=== PATIENT | male | born 1935 | race Two or more races ===

== ENCOUNTER 2016-10-24 19:27 | Emergency (ER) | payer MEDICARE, OTHER, BC ==
[~2016-10-24] VITALS: Ht 177.8 cm; Wt 77.7 kg
[~2016-10-24 19:27] MED LIST: /TAMS4CA; ACET65TA; ALLERGY MEDICATION PO; ASPI81TA PO; ASPI81TA83; BABY81CH; BACT800T; CEFD1CAP8 PO; CIPR-249 PO; FINA5TAB2 PO; GLUC1000; GLUC500T; LEVA750T7 PO; METF850T4 PO; PROS5TAB; TAMS0.4C2 PO; THERGRAN; VITA10005 PO; VITA100C7; VITA500T; VITAMIN C; VITMTA PO
[2016-10-24] MEDS ORDERED: MONT10TA2 (19:47)
[2016-10-24 20:26] LABS: BASO % 0.2 % (0.0-1.0); EOS # 0.2 K/mm3 (0.0-0.50); EOS % 1.4 % (0.0-3.0); LARGE UNSTAINED CELL # 0.2 K/mm3 (0.0-0.4); LARGE UNSTAINED CELL % 1.6 % (0.0-4.0); LYMPH # 1.2 K/mm3 (1.5-4.5); LYMPH % 8.4 % (24.0-44.0); MEAN CORPUSCULAR HEMOGLOBIN 33.3 pg (27.0-33.0); MEAN CORPUSCULAR HGB CONC 35.3 g/dl (32.0-36.5); MEAN CORPUSCULAR VOLUME 94.3 fl (80.0-96.0); MONO # 0.7 K/mm3 (0.0-0.8); MONO % 4.9 % (0.0-5.0); NEUTROPHILS # 11.9 K/mm3 (1.8-7.7); NEUTROPHILS % 83.6 % (36.0-66.0); PLATELET COUNT, AUTOMATED 389 k/mm3 (150-450); RED CELL DISTRIBUTION WIDTH 12.8 % (11.5-14.5); WHITE BLOOD COUNT 14.3 K/mm3 (4.0-10.0)
[2016-10-24 20:51] LABS: ANION GAP 8 MEQ/L (8-16); BLOOD UREA NITROGEN 21 MG/DL (7-18); CALCIUM LEVEL 8.9 MG/DL (8.8-10.2); CARBON DIOXIDE LEVEL 28 MEQ/L (21-32); CHLORIDE LEVEL 99 MEQ/L (98-107); CREATININE FOR GFR 1.17 MG/DL (0.70-1.30); FREE T4 0.92 NG/DL (0.76-1.46); GLOMERULAR FILTRATION RATE > 60.0 (>42); GLUCOSE, FASTING 204 MG/DL (83-110); MAGNESIUM LEVEL 2.1 MG/DL (1.8-2.4); POTASSIUM SERUM 4.4 MEQ/L (3.5-5.1); SODIUM LEVEL 135 MEQ/L (136-145)
[2016-10-24 22:08] VITALS: BP 136/78
--- NOTE | 2016-10-25 07:51 | REP ---
Clinical: Syncope. Technique: PA and lateral. Comparison: 09/08/2015. Findings: Mediastinum and cardiac silhouette are stable. Stable prominent appearance to the right hilum is again noted. Lung campos demonstrate chronic stable changes without acute consolidation, effusion, or pneumothorax. Skeletal structures demonstrate age-related changes. Impression: Stable prominent appearance of the right hilum likely secondary to underlying vascular prominence. Chronic changes without acute cardiopulmonary process. Signed by Thai Maldonado MD 10/25/2016 07:42 A
--- NOTE | 2016-10-25 19:26 | ECGEPIP ---
Stationary ECG Study [facility] - ED Test Date: 2016-10-24 Pat Name: RADHA YANES Department: Room: - Gender: M Seed [employer]cker: ToB: 1935 Requested By: KASANDRA Shanks Order Number: [id number] Reading MD: Justice Loya Measurements Intervals [place] Rate: 97 P: 34 PA: 237 QRS: 51 QRSD: 135 T: 21 QT: 353 QTc: 449 Interpretive Statements SINUS RHYTHM WITH FIRST DEGREE AV BLOCK INDETERMINATE AXIS RIGHT BUNDLE BRANCH BLOCK SIMILAR TO 09/09/15 Electronically Signed On 10-25-2016 19:25:33 EDT by Justice Loya
== END 2016-10-24 22:25 | disposition home or self-care (01) ==
LOC: M ED 19:27
DX: R55 Syncope and collapse (principal); I45.10 Unspecified right bundle-branch block; I44.0 Atrioventricular block, first degree; E11.9 Type 2 diabetes mellitus without complications; N40.0 Benign prostatic hyperplasia without lower urinary tract symptoms; Z79.899 Other long term (current) drug therapy; Z79.82 Long term (current) use of aspirin; Z79.84 Long term (current) use of oral hypoglycemic drugs

== ENCOUNTER → 2018-02-20 | Outpatient (CLI) | payer MEDICARE, BC, OTHER ==
[~2018-02-20] MED LIST changes: +ASPI81CH40 PO; -ASPI81TA PO; +FLOM0.4C39 PO; +MONT10TA2; +MUCI600T31 PO
[2018-02-20 18:42] LABS: AMORPHOUS SEDIMENT SMALL (NEGATIVE); APPEARANCE, URINE CLOUDY (CLEAR); BACTERIA, URINE AUTO NEGATIVE (NEGATIVE); BILIRUBIN, URINE AUTO NEGATIVE (NEGATIVE); BLOOD, URINE BLOOD 1+ (NEGATIVE); COLOR, URINE YELLOW (YELLOW); GLUCOSE, URINE (UA) AUTO NEGATIVE (NEGATIVE); KETONE, URINE AUTO NEGATIVE (NEGATIVE); LEUKOCYTE ESTERASE, URINE AUTO 3+ (NEGATIVE); NITRITE, URINE AUTO POSITIVE (NEGATIVE); PROTEIN, URINE AUTO 1+ mg/dL (NEGATIVE); RBC, URINE AUTO 26 /HPF (0-3); SQUAMOUS EPITHELIAL CELL UR AU 1 /HPF (0-6); UROBILINOGEN, URINE AUTO 0.2 mg/dL (0.0-2.0); WBC, URINE AUTO TNTC /HPF (0-3)
[2018-02-20 19:10] LABS: BLOOD UREA NITROGEN 24 MG/DL (7-18); CALCIUM LEVEL 9.3 MG/DL (8.8-10.2); CARBON DIOXIDE LEVEL 29 MEQ/L (21-32); CHLORIDE LEVEL 102 MEQ/L (98-107); CREATININE FOR GFR 0.97 MG/DL (0.70-1.30); GLOMERULAR FILTRATION RATE > 60.0 (>35); GLUCOSE, FASTING 133 MG/DL (70-100); POTASSIUM SERUM 4.9 MEQ/L (3.5-5.1); SODIUM LEVEL 139 MEQ/L (136-145)
== END ==
LOC: M SMT 15:22
PROVIDERS: ATTEND Nurse Practitioner Family
DX: N40.1 Benign prostatic hyperplasia with lower urinary tract symptoms (principal); R31.0 Gross hematuria
CPT/HCPCS: 36415; 51798; 80048; 81001; 87086; 88108; G0463

== ENCOUNTER → 2018-02-21 | Outpatient (REF) | payer MEDICARE, OTHER ==
[~2018-02-21] MED LIST changes: -FLOM0.4C39 PO; -MUCI600T31 PO
[2018-02-21 22:02] LABS: AMORPHOUS SEDIMENT SMALL (NEGATIVE); APPEARANCE, URINE CLOUDY (CLEAR); BACTERIA, URINE AUTO NEGATIVE (NEGATIVE); BILIRUBIN, URINE AUTO NEGATIVE (NEGATIVE); BLOOD, URINE BLOOD 1+ (NEGATIVE); COLOR, URINE YELLOW (YELLOW); GLUCOSE, URINE (UA) AUTO NEGATIVE (NEGATIVE); KETONE, URINE AUTO NEGATIVE (NEGATIVE); LEUKOCYTE ESTERASE, URINE AUTO 3+ (NEGATIVE); MUCUS, URINE SMALL (NEGATIVE); NITRITE, URINE AUTO POSITIVE (NEGATIVE); PROTEIN, URINE AUTO 1+ mg/dL (NEGATIVE); RBC, URINE AUTO 40 /HPF (0-3); SPECIFIC GRAVITY URINE AUTO 1.021 (1.002-1.035); SQUAMOUS EPITHELIAL CELL UR AU 0 /HPF (0-6); TRANSITIONAL EPITHELIAL AUTO 1 /HPF; UROBILINOGEN, URINE AUTO 0.2 mg/dL (0.0-2.0); WBC, URINE AUTO TNTC /HPF (0-3)
== END ==
LOC: M SMT 17:09
PROVIDERS: ATTEND Nurse Practitioner Family
DX: R31.0 Gross hematuria (principal)

== ENCOUNTER → 2018-02-24 | Outpatient (CLI) | payer MEDICARE, OTHER, BC ==
[~2018-02-24] MED LIST changes: +ISOVUE-370 76% 100ML VIAL (Q9967) As Ordered ONE
--- NOTE | 2018-02-24 10:06 | REP ---
CT UROGRAPHY WITHOUT AND WITH IV CONTRAST: Multiphase postcontrast imaging included. HISTORY: Gross hematuria. COMPARISON CT STUDY: June 04, 2015. CT CONTRAST DOSE: 100 mL of intravenous Isovue [address] FINDINGS: Preliminary scene painter radiograph is unremarkable. Bowel gas pattern is normal. The lung bases show minimal bibasilar fibrotic change. The liver and the spleen are normal in size homogeneous in texture. The gallbladder is unremarkable. No adrenal lesion is seen on either side. The pancreas shows no evidence of mass or cyst. A normal caliber aorta is seen. There is no evidence of hydronephrosis on either side. No intrarenal calculus is seen. There is a cyst in the upper pole of the left kidney which measures 2.7 cm in greatest diameter. A parenchymal cyst is seen at the lower pole of the left kidney as well measuring 1.2 cm. Kidneys enhance symmetrically. No mass lesion is observed. Delayed scan images show no filling defect in the collecting system and normal-caliber ureters. The prostate is enlarged. In addition, a small enhancing mass lesion is suspected in the bladder base on the left posteriorly measuring 1.1 cm in greatest diameter. This presents as a filling defect on delayed postcontrast acquisition although it is contiguous with the floor of the bladder which is elevated by the prostate. It could be nodular prostate enlargement impinging on the bladder. Indeed the appearance is actually quite similar to the CT study done 2 years ago June 04, 2015. Although at that time, there was a large thrombus in the dilated urinary bladder. There is a diffuse thickening of the remainder the urinary bladder wall. There are two lymph nodes to the left of midline in the prevesical soft tissues just posterior to the distal rectus muscle. The largest of these measures 12 x 9 mm. The smaller measures 9 mm in greatest diameter. They are both visible and unchanged from the June 04, 2015 study. Prostate is enlarged as before. No abdominal wall defect is seen. No other evidence of adenopathy is observed. No bony destructive lesion is appreciated. IMPRESSION: Two small left renal cysts. No hydronephrosis or urinary tract calculus seen. Diffuse thickening of the bladder wall. Prostate enlargement. Suspect enhancing 11 mm left posterior bladder wall mass. There are two stable lymph nodes along the anterior edge of the urinary bladder on the left side, unchanged from 2016 prior study. Electronically Signed by Mauricio Nassar MD 02/24/2018 10:28 A
== END ==
LOC: M RAD 08:08
PROVIDERS: ATTEND Nurse Practitioner Family
DX: R31.0 Gross hematuria (principal)
CPT/HCPCS: 74178; Q9967

== ENCOUNTER → 2018-03-13 | Outpatient (REF) | payer MEDICARE, OTHER, BC ==
[~2018-03-13] MED LIST changes: +FLOM0.4C39 PO; -ISOVUE-370 76% 100ML VIAL (Q9967) As Ordered ONE; +MUCI600T31 PO
[2018-03-13 19:30] LABS: APPEARANCE, URINE HAZY (CLEAR); BACTERIA, URINE AUTO 1+ (NEGATIVE); BILIRUBIN, URINE AUTO NEGATIVE (NEGATIVE); BLOOD, URINE BLOOD 1+ (NEGATIVE); CALCIUM OXALATE CRYSTALS MODERATE; COLOR, URINE YELLOW (YELLOW); GLUCOSE, URINE (UA) AUTO NEGATIVE (NEGATIVE); KETONE, URINE AUTO NEGATIVE (NEGATIVE); LEUKOCYTE ESTERASE, URINE AUTO 2+ (NEGATIVE); MUCUS, URINE SMALL (NEGATIVE); NITRITE, URINE AUTO NEGATIVE (NEGATIVE); PROTEIN, URINE AUTO NEGATIVE (NEGATIVE); RBC, URINE AUTO 13 /HPF (0-3); SPECIFIC GRAVITY URINE AUTO 1.021 (1.002-1.035); SQUAMOUS EPITHELIAL CELL UR AU 0 /HPF (0-6); UROBILINOGEN, URINE AUTO 0.2 mg/dL (0.0-2.0); WBC, URINE AUTO 58 /HPF (0-3)
== END ==
LOC: M SMT 17:55
PROVIDERS: ATTEND Nurse Practitioner Family
DX: N39.0 Urinary tract infection, site not specified (principal)
CPT/HCPCS: 81001; 87088; 87186; G0463

== ENCOUNTER → 2018-03-27 | Outpatient (REF) | payer MEDICARE, OTHER, BC ==
[2018-03-27 13:26] LABS: APPEARANCE, URINE HAZY (CLEAR); BACTERIA, URINE AUTO NEGATIVE (NEGATIVE); BILIRUBIN, URINE AUTO NEGATIVE (NEGATIVE); BLOOD, URINE BLOOD NEGATIVE (NEGATIVE); CALCIUM OXALATE CRYSTALS SMALL; COLOR, URINE YELLOW (YELLOW); GLUCOSE, URINE (UA) AUTO NEGATIVE (NEGATIVE); KETONE, URINE AUTO NEGATIVE (NEGATIVE); LEUKOCYTE ESTERASE, URINE AUTO NEGATIVE (NEGATIVE); NITRITE, URINE AUTO NEGATIVE (NEGATIVE); PROTEIN, URINE AUTO NEGATIVE (NEGATIVE); RBC, URINE AUTO 2 /HPF (0-3); SPECIFIC GRAVITY URINE AUTO 1.024 (1.002-1.035); SQUAMOUS EPITHELIAL CELL UR AU 1 /HPF (0-6); UROBILINOGEN, URINE AUTO 0.2 mg/dL (0.0-2.0); WBC, URINE AUTO 8 /HPF (0-3)
== END ==
LOC: M LAB REF 13:08
PROVIDERS: ATTEND Nurse Practitioner Family
DX: N39.0 Urinary tract infection, site not specified (principal)

== ENCOUNTER → 2018-03-28 | Outpatient (CLI) | payer MEDICARE, OTHER, BC ==
--- NOTE | 2018-03-28 10:26 | ECGEPIP ---
Stationary ECG Study [facility] Test Date: 2018-03-28 Pat Name: RADHA YANES Department: Room: - Gender: M Under B[employer]: : 1935 Requested By: RAISSA Godoy Order Number: [id number] Reading MD: Anita Castro Measurements Intervals [place] Rate: 74 P: 60 RI: 236 QRS: 96 QRSD: 134 T: 59 QT: 384 QTc: 427 Interpretive Statements SINUS RHYTHM WITH FIRST DEGREE AV BLOCK RIGHT BUNDLE BRANCH BLOCK BIFASICULAR BLOCK LOW VOLTAGE LIMB VERTICAL AXIS C/W 10/24/16 Electronically Signed On 03-28-2018 10:26:31 EST by Anita Castro
== END ==
LOC: M LAB 10:00 → M EKG 10:00
PROVIDERS: ATTEND Internal Medicine
DX: N39.0 Urinary tract infection, site not specified (principal); E11.9 Type 2 diabetes mellitus without complications

== ENCOUNTER → 2018-03-28 | Outpatient (CLI) | payer MEDICARE, OTHER, BC ==
--- NOTE | 2018-03-28 15:56 | REP ---
Chest two views HISTORY: Preop Comparison: 10/24/2016 There is elevation of the right hemidiaphragm. A minimal increase in interstitial markings is present in the lungs consistent with chronic interstitial change. The heart is normal in size. The pulmonary vasculature is normal in appearance. The bony structure is intact. IMPRESSION: Chronic interstitial change. Electronically Signed by Julian Lepe MD 03/28/2018 03:48 P
[2018-03-28 18:49] LABS: HEMATOCRIT 47.6 % (42.0-52.0); HEMOGLOBIN 15.9 g/dl (13.5-17.5); MEAN CORPUSCULAR HEMOGLOBIN 32.7 pg (27.0-33.0); MEAN CORPUSCULAR HGB CONC 33.4 g/dl (32.0-36.5); MEAN CORPUSCULAR VOLUME 97.9 fl (80.0-96.0); PLATELET COUNT, AUTOMATED 365 10^3/uL (150-450); RED BLOOD COUNT 4.86 10^6/uL (4.30-6.10)
[2018-03-28 18:59] LABS: INR 0.95; PROTHROMBIN TIME 12.8 SECONDS (12.1-14.4)
[2018-03-28 19:00] LABS: PARTIAL THROMBOPLASTIN TIME 34.7 SECONDS (25.4-37.6)
[2018-03-28 19:16] LABS: BLOOD UREA NITROGEN 20 MG/DL (7-18); CALCIUM LEVEL 8.9 MG/DL (8.8-10.2); CARBON DIOXIDE LEVEL 30 MEQ/L (21-32); CHLORIDE LEVEL 100 MEQ/L (98-107); CREATININE FOR GFR 0.93 MG/DL (0.70-1.30); GLOMERULAR FILTRATION RATE > 60.0 (>35); GLUCOSE, FASTING 208 MG/DL (70-100); POTASSIUM SERUM 4.9 MEQ/L (3.5-5.1); SODIUM LEVEL 139 MEQ/L (136-145)
== END ==
LOC: M SMT 15:06
PROVIDERS: ATTEND Nurse Practitioner Family
DX: Z01.818 Encounter for other preprocedural examination (principal); R33.8 Other retention of urine; N32.89 Other specified disorders of bladder; N39.0 Urinary tract infection, site not specified; E11.9 Type 2 diabetes mellitus without complications

== ENCOUNTER 2018-04-07 10:16 | Day surgery (SDC) | payer MEDICARE, OTHER, BC ==
[~2018-04-07] VITALS: Ht 177.8 cm; Wt 78.9 kg
[2018-04-07] MEDS ORDERED: LR 1,000 ML IV ONE (10:30)
[2018-04-07] MEDS ORDERED: LIDOCAINE 2% INJ 100 MG/5 ML SDV (FOR ANES.) As Ordered ONE (10:57)
[2018-04-07] MEDS ORDERED: PROPOFOL 200 MG/20 ML VIAL As Ordered ONE (10:57)
[2018-04-07] MEDS ORDERED: fentaNYL 100 MCG/2 ML INJECTION (J3010) As Ordered ONE ×2 (10:57→14:01)
[2018-04-07] MEDS ORDERED: ONDANSETRON 4MG/2ML VIAL (J2405) As Ordered ONE (10:57)
[2018-04-07] MEDS ORDERED: ROCURONIUM BROMIDE 50 MG/5 ML VIAL As Ordered ONE (12:46)
[2018-04-07] MEDS ORDERED: GLYCOPYRROLATE INJ 0.2 MG/ML 2 ML VIAL As Ordered ONE (13:38)
[2018-04-07] MEDS ORDERED: dexameTHASONE 4 MG/ML 1ML VIAL (J1100) As Ordered ONE (13:38)
[2018-04-07] MEDS ORDERED: FUROSEMIDE 100 MG/10 ML VIAL (J1940) As Ordered ONE (13:52)
[2018-04-07] MEDS ORDERED: ONDANSETRON 4MG/2ML VIAL (J2405) IV PRN (15:15)
[2018-04-07] MEDS ORDERED: LR 1,000 ML IV SCH (15:15)
[2018-04-07] MEDS ORDERED: fentaNYL 100 MCG/2 ML INJECTION (J3010) IV PRN (15:15)
[2018-04-07] MEDS ORDERED: PERCOCET 5MG/325MG TAB PO PRN (15:15)
[2018-04-07] MEDS ORDERED: ACETAMINOPHEN TAB 650MG DOSE (2X325MG) PO PRN (15:15)
[2018-04-07 15:37] VITALS: BP 144/68
--- NOTE | 2018-04-08 08:31 | RO ---
DATE OF PROCEDURE: 04/07/2018 PREPROCEDURE DIAGNOSIS: Urinary retention, Possible bladder mass. POSTPROCEDURE DIAGNOSIS: Benign prostatic hyperplasia. PROCEDURE: Cystoscopy, Button transurethral electrovaporization of the prostate. SURGEON: Jessee Catherine MD VARNISHER: None. ANESTHESIA: General. OPERATIVE INDICATIONS: This is an 82-year-old male who underwent cystoscopy with Button transurethral electrovaporization prostate approximately three years ago. Recently he has had difficulty with urinary retention and also on recent imaging he was found to have a possible mass inside his bladder. He was brought to the operating room today to investigate the cause of his urinary retention and treat that as well as a possible bladder mass. DESCRIPTION OF PROCEDURE: The patient was brought to the operating room and general anesthesia was induced. Prophylactic antibiotics were infused. He was then placed in the dorsal lithotomy position and prepped and draped in the usual sterile fashion. At this point, a rigid cystoscope was inserted into the urethral meatus and advanced into the bladder. At this point, the bladder was thoroughly examined with both the 30 and the 70 degrees lens. Of note there were no bladder masses. The patient did have a fairly large median lobe of his prostate growing into the bladder which I suspect was the bladder mass seen on imaging. On examination, he did not have a bladder neck contracture. Instead he had a large amount of regrowth of prostatic urethral tissue. For this reason I decided to do another Button transurethral electrovaporization to open up his prostate so that he could empty his bladder better. At this point the cystoscope was changed out for a Button resectoscope. I began vaporizing hyperplastic tissue first at the median lobe and then circumferentially at the bladder neck. I then vaporized hyperplastic tissue on both lateral lobes. I kept doing this until there was a clear channel established. Throughout the procedure I made sure not to vaporize close to the ureteral orifices or distal to the verumontanum. Once satisfied with the clear channel, hemostasis was obtained using coagulation current. Once that was done, the Button resectoscope was removed and an #18-[place] catheter was inserted into the bladder. The balloon was filled with 15 mL of sterile water and fluid drained light pink at the end of the procedure. The catheter was connected to gravity drainage and this marked the conclusion of the procedure. The patient was then taken out of dorsal lithotomy position, awakened from anesthesia and transported to the recovery room in stable condition. ESTIMATED BLOOD LOSS: 25 mL COMPLICATIONS: None SPECIMENS: None PLAN: The patient will followup in clinic in approximately one week for catheter removal and voiding trial. MELISA
== END 2018-04-07 16:28 | disposition home or self-care (01) ==
LOC: M SDC 10:16 → EEVIPCON 10:35 → M SDC 16:28
PROVIDERS: ATTEND Urology
DX: N40.0 Benign prostatic hyperplasia without lower urinary tract symptoms (principal); E11.9 Type 2 diabetes mellitus without complications; Z79.84 Long term (current) use of oral hypoglycemic drugs
CPT/HCPCS: 52601; J0690; J1100; J1940; J2405; J3010

== ENCOUNTER → 2018-04-21 | Outpatient (REF) | payer MEDICARE ==
[2018-04-21 14:16] LABS: APPEARANCE, URINE CLOUDY (CLEAR); BACTERIA, URINE AUTO 1+ (NEGATIVE); BILIRUBIN, URINE AUTO NEGATIVE (NEGATIVE); BLOOD, URINE BLOOD 3+ (NEGATIVE); COLOR, URINE YELLOW (YELLOW); GLUCOSE, URINE (UA) AUTO NEGATIVE (NEGATIVE); KETONE, URINE AUTO NEGATIVE (NEGATIVE); LEUKOCYTE ESTERASE, URINE AUTO 2+ (NEGATIVE); MUCUS, URINE SMALL (NEGATIVE); NITRITE, URINE AUTO NEGATIVE (NEGATIVE); PROTEIN, URINE AUTO 2+ mg/dL (NEGATIVE); RBC, URINE AUTO TNTC /HPF (0-3); SPECIFIC GRAVITY URINE AUTO 1.023 (1.002-1.035); SQUAMOUS EPITHELIAL CELL UR AU 0 /HPF (0-6); UROBILINOGEN, URINE AUTO 0.2 mg/dL (0.0-2.0); WBC, URINE AUTO 94 /HPF (0-3)
== END ==
LOC: M SMT 13:02
PROVIDERS: ATTEND Nurse Practitioner Family
DX: R33.8 Other retention of urine (principal)

== ENCOUNTER → 2018-05-10 | Outpatient (REF) | payer MEDICARE ==
[~2018-05-10] MED LIST changes: -/TAMS4CA; +ASPI81CH36 PO; -ASPI81CH40 PO; +FLOM0.4C39
[2018-05-10 13:38] LABS: AMORPHOUS SEDIMENT SMALL (NEGATIVE); APPEARANCE, URINE CLOUDY (CLEAR); BACTERIA, URINE AUTO 1+ (NEGATIVE); BILIRUBIN, URINE AUTO NEGATIVE (NEGATIVE); BLOOD, URINE BLOOD 3+ (NEGATIVE); COLOR, URINE AMBER (YELLOW); GLUCOSE, URINE (UA) AUTO NEGATIVE (NEGATIVE); KETONE, URINE AUTO NEGATIVE (NEGATIVE); LEUKOCYTE ESTERASE, URINE AUTO 3+ (NEGATIVE); NITRITE, URINE AUTO NEGATIVE (NEGATIVE); PROTEIN, URINE AUTO 2+ mg/dL (NEGATIVE); RBC, URINE AUTO TNTC /HPF (0-3); SPECIFIC GRAVITY URINE AUTO 1.023 (1.002-1.035); SQUAMOUS EPITHELIAL CELL UR AU 0 /HPF (0-6); UROBILINOGEN, URINE AUTO 0.2 mg/dL (0.0-2.0); WBC, URINE AUTO TNTC /HPF (0-3)
== END ==
LOC: M SMT 13:07
PROVIDERS: ATTEND Nurse Practitioner Family
DX: N40.1 Benign prostatic hyperplasia with lower urinary tract symptoms (principal)

== ENCOUNTER → 2018-05-29 | Outpatient (REF) | payer MEDICARE, OTHER, BC | LOC: M SMT 12:53 | PROVIDERS: ATTEND Urology | DX: N40.1 Benign prostatic hyperplasia with lower urinary tract symptoms (principal) | CPT/HCPCS: 87086; G0463 ==

== ENCOUNTER → 2018-08-09 | Outpatient (CLI) | payer MEDICARE, OTHER, BC ==
--- NOTE | 2018-08-10 09:41 | REP ---
Clinical: Cough . Comparison: 03/28/2018 . Technique: PA and lateral. Findings: The mediastinum and cardiac silhouette are normal. The lung campos demonstrate chronic changes without acute consolidation, effusion, or pneumothorax. The skeletal structures are intact and normal. Impression: 1. No acute cardiopulmonary process. Electronically Signed by Thai Maldonado MD 08/09/2018 02:51 P
== END ==
LOC: M WUC 14:38
PROVIDERS: ATTEND Internal Medicine
DX: R05 Cough (principal)

== ENCOUNTER → 2020-05-26 | Outpatient (CLI) | payer MEDICARE, OTHER, BC ==
[~2020-05-26] MED LIST changes: +ASPI81CH32 PO; -ASPI81CH36 PO; +MONT10TA10; -MONT10TA2
--- NOTE | 2020-05-26 16:31 | REPPI ---
INDICATION: SOB. COMPARISON: 08/09/2018 FINDINGS: The superior mediastinal structures are midline. The cardiac silhouette is unremarkable in size, shape, and position. The diaphragmatic surfaces of the lungs are regular, and the costophrenic angles are clear. The pulmonary campos are clear. The imaged osseous structures are intact. IMPRESSION: There is no acute cardiopulmonary disease. <Electronically signed by Nathaniel Cardenas > 05/26/20 0925
== END ==
LOC: M PLAIMG 14:29
PROVIDERS: ATTEND Internal Medicine
DX: R06.02 Shortness of breath (principal)

== ENCOUNTER → 2020-11-19 | Outpatient (CLI) | payer MEDICARE, OTHER, BC ==
--- NOTE | 2020-11-19 15:35 | REP ---
INDICATION: PAIN COMPARISON: None. TECHNIQUE: AP, lateral, bilateral oblique views left foot. FINDINGS: Age-related osteopenia and generalized degenerative changes are appreciated along with calcified peripheral vascular disease. No obvious acute fracture or dislocation. No subcutaneous emphysema or foreign body. Lateral view demonstrates small calcaneal heel spur. IMPRESSION: Generalized age-related osteopenia and degenerative changes along with significant peripheral vascular disease.. No acute fracture or dislocation. <Electronically signed by Thai Maldonado > 11/19/20 0294
== END ==
LOC: M WUC 15:02
PROVIDERS: ATTEND Internal Medicine
DX: M85.872 Other specified disorders of bone density and structure, left ankle and foot (principal); I70.292 Other atherosclerosis of native arteries of extremities, left leg; M79.672 Pain in left foot

== ENCOUNTER → 2020-11-21 | Outpatient (CLI) | payer MEDICARE, OTHER, BC ==
[~2020-11-21] MED LIST changes: +ISOVUE-370 76% 100ML VIAL As Ordered ONE
--- NOTE | 2020-11-21 16:06 | REP ---
INDICATION: ABNORMAL FINDING OF LUNG FIELD COMPARISON: 10/22/2014 the latest prior TECHNIQUE: Standard helical technique after the intravenous administration of 100 cc Isovue 370 FINDINGS: There is no mediastinal or hilar adenopathy. There are no pleural or pericardial effusions. The imaged upper abdomen is unchanged. There is a stable left renal cyst. The osseous structures are stable and intact. Evaluation of the lung campos shows no change in the 7 mm size lingular nodule. No new abnormal nodules, masses, or opacities have developed. There is a small amount of debris in the trachea which is likely mucoid in origin. There is minimal stable biapical pleuroparenchymal scarring. IMPRESSION: No new abnormal nodules. Follow-up as per the revised Fleischner society criteria. <Electronically signed by Nathaniel Cardenas > 11/21/20 0146
== END ==
LOC: M RAD 14:15
PROVIDERS: ATTEND Nurse Practitioner Adult Health
DX: R91.8 Other nonspecific abnormal finding of lung field (principal)
CPT/HCPCS: 71260; Q9967

== ENCOUNTER → 2020-12-03 | Outpatient (CLI) | payer MEDICARE, OTHER, BC ==
[~2020-12-03] MED LIST changes: -ISOVUE-370 76% 100ML VIAL As Ordered ONE
== END ==
LOC: M LAB 14:05
PROVIDERS: ATTEND Podiatrist Foot & Ankle Surgery
DX: M10.072 Idiopathic gout, left ankle and foot (principal)

== ENCOUNTER 2021-06-04 11:55 | Inpatient (IN) | payer MEDICARE, OTHER, BC ==
[~2021-06-04] VITALS: Ht 177.8 cm; Wt 75.0 kg
[~2021-06-04 11:55] MED LIST changes: -CEFD1CAP8 PO; +CEFD300C41 PO; -MONT10TA10; +MONT10TA97
[2021-06-04 13:37] LABS: BASO % 0.5 % (0.0-1.0); EOS # 0.1 10^3/uL (0.0-0.5); EOS % 0.9 % (0.0-3.0); HEMATOCRIT 36.5 % (42.0-52.0); LYMPH # 0.8 10^3/uL (1.5-5.0); LYMPH % 13.1 % (24.0-44.0); MEAN CORPUSCULAR HEMOGLOBIN 32.7 pg (27.0-33.0); MEAN CORPUSCULAR HGB CONC 35.6 g/dl (32.0-36.5); MEAN CORPUSCULAR VOLUME 91.9 fl (80.0-96.0); MONO # 0.6 10^3/uL (0.0-0.8); MONO % 10.1 % (2.0-8.0); NEUTROPHILS # 4.3 10^3/uL (1.5-8.5); NEUTROPHILS % 74.9 % (36.0-66.0); PLATELET COUNT, AUTOMATED 232 10^3/uL (150-450); RED BLOOD COUNT 3.97 10^6/uL (4.30-6.10); WHITE BLOOD COUNT 5.7 10^3/uL (4.0-10.0)
[2021-06-04 14:04] LABS: BLOOD UREA NITROGEN 23 MG/DL (7-18); CALCIUM LEVEL 9.4 MG/DL (8.8-10.2); CARBON DIOXIDE LEVEL 25 MEQ/L (21-32); CHLORIDE LEVEL 102 MEQ/L (98-107); CREATININE FOR GFR 0.83 MG/DL (0.70-1.30); GLOMERULAR FILTRATION RATE > 60.0 (>35); GLUCOSE, FASTING 278 MG/DL (70-100); POTASSIUM SERUM 4.6 MEQ/L (3.5-5.1); SODIUM LEVEL 136 MEQ/L (136-145)
[2021-06-04 14:19] LABS: RSV AMPLIFICATION NEGATIVE (NEGATIVE)
[2021-06-04 16:24] LABS: ALT/SGPT 110 U/L (12-78); BILIRUBIN,DIRECT 0.4 MG/DL (0.0-0.2); BILIRUBIN,TOTAL 0.9 MG/DL (0.2-1.0); FREE T4 1.28 NG/DL (0.76-1.46)
[2021-06-04] MEDS ORDERED: VITA-175 PO (17:24)
[2021-06-04] MEDS ORDERED: ADVI200T PO (17:24)
[2021-06-04] MEDS ORDERED: ALOG25TA PO (17:24)
[2021-06-04] MEDS ORDERED: HOME MED LIST COMPLETE! XX SCH (17:25)
[2021-06-04] MEDS: HumaLOG INSULIN (NovoLOG) PER UNIT SC SCH (17:30)
[2021-06-04] MEDS ORDERED: ASPIRIN 81 MG CHEW TABLET PO ONE (17:40)
[2021-06-04] MEDS ORDERED: GLUCAGON INJ 1MG VIAL SC PRN (17:40)
[2021-06-04] MEDS ORDERED: MOM 30ML SUSPENSION UDC PO PRN (17:40)
[2021-06-04] MEDS ORDERED: DEXTROSE 50% 50 ML SYRINGE IV PRN (17:40)
[2021-06-04] MEDS ORDERED: MAALOX 30 ML SUSP *UDC PO PRN (17:40)
[2021-06-04] MEDS ORDERED: GLUCOSE 4GM CHEW TABLET PO PRN (17:40)
[2021-06-04 20:29] LABS: CHOLESTEROL RISK RATIO 4.75 (<5)
[2021-06-04 20:30] LABS: MB/CK RELATIVE INDEX 1.68 (< OR =4)
[2021-06-04] MEDS ORDERED: HumaLOG INSULIN (NovoLOG) PER UNIT SC SCH (21:00)
[2021-06-04] MEDS: DOCUSATE SODIUM 100MG CAPSULE PO SCH (21:00)
[2021-06-04] MEDS ORDERED: MULTIVITAMINS/MINERALS THERAP 1 TAB PO SCH (21:00)
[2021-06-04] MEDS ORDERED: ATORVASTATIN 20 MG TAB PO SCH (21:00)
[2021-06-04 21:26] LABS: HEPATITIS B CORE ANTIBODY IGM NEGATIVE (NEGATIVE); HEPATITIS B SURFACE ANTIGEN NEGATIVE (NEGATIVE); HEPATITIS C VIRUS ABY INDEX 0.1 INDEX (<0.8)
[2021-06-04 21:40] VITALS: BP 164/77
[2021-06-05] VITALS (9 sets, daily range): BP systolic 120–140; BP diastolic 58–68; O2SAT 78–95
[2021-06-05 07:11] LABS: HEMATOCRIT 34.6 % (42.0-52.0); HEMOGLOBIN 12.2 g/dl (13.5-17.5); MEAN CORPUSCULAR HEMOGLOBIN 33.1 pg (27.0-33.0); MEAN CORPUSCULAR HGB CONC 35.3 g/dl (32.0-36.5); MEAN CORPUSCULAR VOLUME 93.8 fl (80.0-96.0); PLATELET COUNT, AUTOMATED 223 10^3/uL (150-450); RED BLOOD COUNT 3.69 10^6/uL (4.30-6.10); WHITE BLOOD COUNT 5.6 10^3/uL (4.0-10.0)
[2021-06-05 07:40] LABS: ATYPICAL LYMPH 1 % (0-5); BASOPHILS 1 % (0-1); EOSINOPHILS 3 % (0-3); LYMPHOCYTES 10 % (16-44); MONOCYTES 5 % (0-5); NEUTROPHILS 68 % (28-66)
[2021-06-05 07:41] LABS: PLATELET ESTIMATE NORMAL (NORMAL)
[2021-06-05 07:46] LABS: CK-MB VALUE MASS 2.7 NG/ML (<3.6); MB/CK RELATIVE INDEX 1.34 (< OR =4)
[2021-06-05 07:49] LABS: ALBUMIN 2.5 GM/DL (3.2-5.2); ALT/SGPT 90 U/L (12-78); BILIRUBIN,TOTAL 0.8 MG/DL (0.2-1.0); BLOOD UREA NITROGEN 18 MG/DL (7-18); CALCIUM LEVEL 8.6 MG/DL (8.8-10.2); CARBON DIOXIDE LEVEL 31 MEQ/L (21-32); CHLORIDE LEVEL 101 MEQ/L (98-107); CREATININE FOR GFR 0.89 MG/DL (0.70-1.30); GLOMERULAR FILTRATION RATE > 60.0 (>35); GLUCOSE, FASTING 329 MG/DL (70-100); MAGNESIUM LEVEL 1.9 MG/DL (1.8-2.4); POTASSIUM SERUM 4.5 MEQ/L (3.5-5.1); SODIUM LEVEL 134 MEQ/L (136-145); TOTAL PROTEIN 5.8 GM/DL (6.4-8.2)
[2021-06-05] MEDS ORDERED: NS 500 ML IV ONE (08:10)
[2021-06-05] MEDS: HumaLOG INSULIN (NovoLOG) PER UNIT SC SCH ×2 (08:43→12:00)
[2021-06-05] MEDS: DOCUSATE SODIUM 100MG CAPSULE PO SCH (08:47)
[2021-06-05] MEDS ORDERED: ENOXAPARIN 40MG/0.4ML SYRINGE (J1650 PER 10MG) SC SCH (09:00)
[2021-06-05] MEDS ORDERED: ASPIRIN 81 MG CHEW TABLET PO SCH (09:00)
[2021-06-05] MEDS ORDERED: LEVO750T13 PO (14:17)
[2021-06-05] MEDS ORDERED: ASPI81CH8 PO (14:19)
[2021-06-05] MEDS ORDERED: LevoFLOXacin 750 MG TABLET PO ONE (14:45)
[2021-06-07] MEDS ORDERED: DOXY-350 PO (10:36)
== END 2021-06-05 16:01 | disposition home health service (06) | DRG 690 ==
LOC: M ED 11:55 → M ED INP 18:18 → M PCU 21:41
PROVIDERS: ADMIT Internal Medicine; ATTEND Internal Medicine
DX: N39.0 Urinary tract infection, site not specified (principal); R74.01 Elevation of levels of liver transaminase levels; E11.9 Type 2 diabetes mellitus without complications; D64.9 Anemia, unspecified; E03.9 Hypothyroidism, unspecified; R29.6 Repeated falls; K76.0 Fatty (change of) liver, not elsewhere classified; Z79.82 Long term (current) use of aspirin; Z79.899 Other long term (current) drug therapy

== ENCOUNTER → 2021-06-26 | Outpatient (CLI) | payer MEDICARE, OTHER, BC ==
[~2021-06-26] MED LIST changes: +ADVI200T PO; +ALOG25TA PO; +ASPI81CH8 PO; +DOXY-350 PO; +ISOVUE-370 76% 100ML VIAL As Ordered ONE; +LEVO750T13 PO; +VITA-175 PO
== END ==
LOC: M RAD 10:23
PROVIDERS: ATTEND Internal Medicine
DX: R06.02 Shortness of breath (principal)
CPT/HCPCS: 71260; Q9967

== ENCOUNTER 2021-09-07 21:56 | Emergency (ER) | payer MEDICARE, OTHER, BC ==
[~2021-09-07] VITALS: Ht 177.8 cm; Wt 71.3 kg
[~2021-09-07 21:56] MED LIST changes: -ISOVUE-370 76% 100ML VIAL As Ordered ONE
[2021-09-07 22:32] LABS: BASO % 0.2 % (0.0-1.0); EOS # 0.1 10^3/uL (0.0-0.5); EOS % 0.4 % (0.0-3.0); HEMATOCRIT 39.2 % (42.0-52.0); HEMOGLOBIN 13.7 g/dl (13.5-17.5); LYMPH # 0.5 10^3/uL (1.5-5.0); LYMPH % 2.6 % (24.0-44.0); MEAN CORPUSCULAR HEMOGLOBIN 32.5 pg (27.0-33.0); MEAN CORPUSCULAR HGB CONC 34.9 g/dl (32.0-36.5); MEAN CORPUSCULAR VOLUME 93.1 fl (80.0-96.0); MONO # 1.5 10^3/uL (0.0-0.8); NEUTROPHILS # 16.6 10^3/uL (1.5-8.5); NEUTROPHILS % 88.3 % (36.0-66.0); PLATELET COUNT, AUTOMATED 264 10^3/uL (150-450); RED BLOOD COUNT 4.21 10^6/uL (4.30-6.10); WHITE BLOOD COUNT 18.8 10^3/uL (4.0-10.0)
[2021-09-07 23:10] LABS: CK-MB VALUE MASS 2.1 NG/ML (<3.6); MB/CK RELATIVE INDEX 0.73 (< OR =4)
[2021-09-07] MEDS ORDERED: ACETAMINOPHEN TAB 650MG DOSE (2X325MG) PO ONE (23:10)
[2021-09-07 23:13] LABS: BLOOD UREA NITROGEN 19 MG/DL (7-18); CREATININE FOR GFR 1.11 MG/DL (0.70-1.30); GLOMERULAR FILTRATION RATE > 60.0 (>35); GLUCOSE, FASTING 195 MG/DL (70-100); SODIUM LEVEL 140 MEQ/L (136-145)
[2021-09-07 23:14] LABS: ALBUMIN 3.5 GM/DL (3.2-5.2); ALT/SGPT 27 IU/L (0-32); BILIRUBIN,DIRECT 0.2 MG/DL (0.0-0.2); BILIRUBIN,TOTAL 1.1 MG/DL (0.2-1.0); CALCIUM LEVEL 8.8 MG/DL (8.8-10.2); CARBON DIOXIDE LEVEL 24 mmol/L (20-29); CHLORIDE LEVEL 105 MEQ/L (98-107); POTASSIUM SERUM 3.5 MEQ/L (3.5-5.1); TOTAL PROTEIN 6.7 GM/DL (6.4-8.2)
[2021-09-07] MEDS ORDERED: LIDOCAINE 2% 5ML JELLY UROJET TOP ONE (23:15)
[2021-09-07 23:50] LABS: NT-PRO BNP 686 PG/ML (<450)
[2021-09-08] MEDS ORDERED: ASPIRIN 81 MG CHEW TABLET PO ONE (00:30)
[2021-09-08] MEDS ORDERED: NS 500 ML IV ONE (01:30)
[2021-09-08] MEDS ORDERED: cefTRIAXone SOD 1 GM in D5W MINI-BAG PLUS 50 ML IV ONE ×2 (01:55→04:00)
[2021-09-08] MEDS ORDERED: HEPARIN DRIP 25,000 UNITS in IV 1 EA IV SCH (03:05)
[2021-09-08 03:51] LABS: INR 1.06; PROTHROMBIN TIME 14.2 SECONDS (12.7-14.5)
[2021-09-08 03:52] LABS: PARTIAL THROMBOPLASTIN TIME 32.3 SECONDS (25.9-37.0)
[2021-09-08 06:29] VITALS: BP 118/68
== END 2021-09-08 06:35 | disposition short-term general hospital (02) ==
LOC: M ED 21:56 → EDBD 21:56 → M ED 09-08 06:35
DX: I21.4 Non-ST elevation (NSTEMI) myocardial infarction (principal); N39.0 Urinary tract infection, site not specified; R41.82 Altered mental status, unspecified; R94.31 Abnormal electrocardiogram [ECG] [EKG]; E11.9 Type 2 diabetes mellitus without complications; M43.12 Spondylolisthesis, cervical region; E04.1 Nontoxic single thyroid nodule; D38.1 Neoplasm of uncertain behavior of trachea, bronchus and lung; R90.82 White matter disease, unspecified; J34.9 Unspecified disorder of nose and nasal sinuses; Z79.82 Long term (current) use of aspirin; Z79.899 Other long term (current) drug therapy
CPT/HCPCS: 51701; 70450; 71045; 72125; 80048; 80076; 81001; 82550; 82553; 83605; 83880; 84443; 84484; 85025; 85610; 85730; 87040; 87077; 87088; 87186; 87486; 87581; 87633; 87798; 93005; 93041; 94760; 96361; 96365; 96366; 99285; J0696; J1644

== ENCOUNTER → 2021-10-07 | Outpatient (REF) | payer MEDICARE, BC, OTHER ==
[~2021-10-07] MED LIST changes: +LEVO1TAB40 PO; -LEVO750T13 PO
[2021-10-07 14:07] LABS: APPEARANCE, URINE MANUAL CLEAR (CLEAR); BILIRUBIN, URINE MANUAL NEGATIVE (NEGATIVE); BLOOD URINE MANUAL NEGATIVE (NEGATIVE); COLOR, URINE MANUAL YELLOW (YELLOW); GLUCOSE, URINE (UA) MANUAL NEGATIVE (NEGATIVE); KETONE, URINE MANUAL NEGATIVE (NEGATIVE); LEUKOCYTE ESTERASE, URINE MAN POSITIVE (NEGATIVE); PROTEIN, URINE MANUAL NEGATIVE (NEGATIVE); SPECIFIC GRAVITY,URINE MANUAL 1.015 (1.002-1.035); UROBILINOGEN, URINE MANUAL NORMAL (NORMAL)
[2021-10-07 14:08] LABS: NITRITE, URINE MANUAL TRACE (NEGATIVE)
[2021-10-07 14:20] LABS: BACTERIA, URINE SMALL AMOUNT; HYALINE CAST, URINE NONE SEEN /lpf (0-1); RBC, URINE NONE SEEN /hpf (0-3); SQUAMOUS EPITHELIAL CELL URINE MOD AMOUNT /hpf (SMALL AMT)
== END ==
LOC: M SMT 12:53
PROVIDERS: ATTEND Nurse Practitioner Women's Health
DX: N39.0 Urinary tract infection, site not specified (principal)

== ENCOUNTER → 2021-11-10 | Outpatient (REF) | payer MEDICARE, BC, OTHER | LOC: M SMT 16:45 | PROVIDERS: ATTEND Urology | DX: N39.0 Urinary tract infection, site not specified (principal) ==

== ENCOUNTER 2022-05-07 20:27 | Emergency (ER) | payer MEDICARE, BC, OTHER ==
[~2022-05-07] VITALS: Ht 177.8 cm; Wt 74.0 kg
[~2022-05-07 20:27] MED LIST changes: -DOXY-350 PO; +DOXY-444 PO
[2022-05-07] MEDS ORDERED: LIDOCAINE W/EPINEPHRINE 1% 20ML VIAL SC ONE (22:05)
[2022-05-07] MEDS ORDERED: DOXYCYCLINE HYCLATE 100MG TABLET PO ONE (22:05)
[2022-05-07 22:15] VITALS: BP 142/74
[2022-05-07] MEDS ORDERED: DOXY-443 PO (22:29)
== END 2022-05-07 22:43 | disposition home or self-care (01) ==
LOC: M ED 20:27
DX: L03.211 Cellulitis of face (principal); L02.01 Cutaneous abscess of face; I25.2 Old myocardial infarction; E11.9 Type 2 diabetes mellitus without complications; Z79.1 Long term (current) use of non-steroidal anti-inflammatories (NSAID); Z79.4 Long term (current) use of insulin; Z79.899 Other long term (current) drug therapy

== ENCOUNTER → 2023-03-21 | Outpatient (REF) | payer MEDICARE, BC, OTHER ==
[~2023-03-21] MED LIST changes: +CEFD1CAP9 PO; -CEFD300C41 PO; +DOXY-443 PO
[2023-03-21 18:42] LABS: APPEARANCE, URINE HAZY (CLEAR); BACTERIA, URINE AUTO NEGATIVE (NEGATIVE); BILIRUBIN, URINE AUTO NEGATIVE (NEGATIVE); BLOOD, URINE BLOOD NEGATIVE (NEGATIVE); COLOR, URINE YELLOW (YELLOW); GLUCOSE, URINE (UA) AUTO 3+ mg/dL (NEGATIVE); KETONE, URINE AUTO NEGATIVE (NEGATIVE); LEUKOCYTE ESTERASE, URINE AUTO 2+ (NEGATIVE); NITRITE, URINE AUTO NEGATIVE (NEGATIVE); PROTEIN, URINE AUTO NEGATIVE (NEGATIVE); RBC, URINE AUTO 0 /HPF (0-3); SPECIFIC GRAVITY URINE AUTO 1.029 (1.002-1.035); SQUAMOUS EPITHELIAL CELL UR AU 1 /HPF (0-6); UROBILINOGEN, URINE AUTO 0.2 mg/dL (0.0-2.0); WBC, URINE AUTO 106 /HPF (0-3)
== END ==
LOC: M SMT 17:03
PROVIDERS: ATTEND Urology
DX: R31.0 Gross hematuria (principal)

== ENCOUNTER 2023-06-22 06:07 | Inpatient (IN) | payer MEDICARE, OTHER ==
[~2023-06-22] VITALS: Ht 177.8 cm; Wt 71.1 kg
[~2023-06-22 06:07] MED LIST changes: +DOXY-323 PO; +DOXY-440 PO; -DOXY-443 PO; -DOXY-444 PO
[2023-06-22] MEDS: LIDOCAINE 4% CREAM 5GM (LMX4) TOP ONE (06:54)
[2023-06-22 07:15] LABS: VENOUS HCO3 24.6 MMOL/L (23.0-27.0); VENOUS O2 SATURATION 97.9 % (60.0-80.0); VENOUS PARTIAL PRESSURE CO2 39.9 mmHg (38.0-50.0); VENOUS PARTIAL PRESSURE O2 105.2 mmHg (30.0-50.0); VENOUS PH 7.407 UNITS (7.330-7.430); VENOUS STANDARD HCO3 24.5 MMOL/L; VENOUS TOTAL CO2 25.8 MMOL/L (24.0-28.0)
[2023-06-22 07:28] LABS: BASO % 0.3 % (0.0-1.0); EOS # 0.1 10^3/uL (0.0-0.5); EOS % 1.4 % (0.0-3.0); HEMOGLOBIN 13.9 g/dl (13.5-17.5); LYMPH # 1.2 10^3/uL (1.5-5.0); LYMPH % 13.4 % (24.0-44.0); MEAN CORPUSCULAR HEMOGLOBIN 33.4 pg (27.0-33.0); MEAN CORPUSCULAR HGB CONC 34.8 g/dl (32.0-36.5); MEAN CORPUSCULAR VOLUME 96.2 fl (80.0-96.0); MONO % 11.1 % (2.0-8.0); NEUTROPHILS # 6.3 10^3/uL (1.5-8.5); NEUTROPHILS % 73.5 % (36.0-66.0); PLATELET COUNT, AUTOMATED 327 10^3/uL (150-450); RED BLOOD COUNT 4.16 10^6/uL (4.30-6.10); WHITE BLOOD COUNT 8.6 10^3/uL (4.0-10.0)
[2023-06-22] MEDS: CEFEPIME HCL 2 GM in D5W MINI-BAG PLUS 50 ML IV ONE (07:38)
[2023-06-22 07:51] LABS: BLOOD UREA NITROGEN 26 MG/DL (9-23); CALCIUM LEVEL 8.7 MG/DL (8.3-10.6); CARBON DIOXIDE LEVEL 24 MMOL/L (20-31); CHLORIDE LEVEL 103 MMOL/L (98-107); CREATININE FOR GFR 0.88 MG/DL (0.70-1.30); GLOMERULAR FILTRATION RATE > 60.0 (>35); GLUCOSE, FASTING 232 MG/DL (74-106); POTASSIUM SERUM 4.4 MMOL/L (3.5-5.1); SODIUM LEVEL 137 MMOL/L (136-145)
[2023-06-22] MEDS: VANCOMYCIN HCL 1,000 MG, VIAL MATE ADAPTER 1 EACH in D5W 250 ML IV ONE (08:16)
[2023-06-22 08:49] LABS: ERYTHROCYTE SEDIMENTATION RATE 18 mm/hr (0-20)
[2023-06-22] MEDS: NS 1,000 ML IV ONE (09:32)
[2023-06-22] MEDS ORDERED: JARD1TAB3 PO (10:06)
[2023-06-22] MEDS ORDERED: ATOR1TAB21 PO (10:06)
[2023-06-22] MEDS ORDERED: MULTTAB61 PO (10:06)
[2023-06-22] MEDS ORDERED: [UNRECOGNIZED DRUG - CODE] PO (10:06)
[2023-06-22] MEDS ORDERED: JANU100T PO (10:06)
[2023-06-22] MEDS ORDERED: FLUT1BLS8 IH (10:06)
[2023-06-22] MEDS ORDERED: HOME MED LIST COMPLETE! XX SCH (10:10)
[2023-06-22] MEDS ORDERED: MAALOX 30 ML SUSP *UDC PO PRN (10:15)
[2023-06-22] MEDS ORDERED: MOM 30ML SUSPENSION UDC PO PRN (10:15)
[2023-06-22] MEDS: VANCOMYCIN HCL 500 MG in D5W MINI-BAG PLUS 100 ML IV ONE (12:17)
[2023-06-22] MEDS ORDERED: DEXTROSE 50% 50ML SYRINGE IV PRN (12:55)
[2023-06-22] MEDS ORDERED: GLUCOSE 4 GM CHEW PO PRN (12:55)
[2023-06-22] MEDS ORDERED: GLUCAGON INJ 1MG VIAL SC PRN (12:55)
[2023-06-22] MEDS: INSULIN LISPRO (NovoLOG) PER UNIT SC SCH ×2 (14:05→20:57)
[2023-06-22 14:32] VITALS: BP 125/60; TEMP 97.7; O2SAT 96
[2023-06-22] MEDS: NS 1,000 ML IV SCH (15:34)
[2023-06-22 20:10] VITALS: BP 132/69; TEMP 97.5; O2SAT 95
[2023-06-22] MEDS: CEFEPIME HCL 2 GM in D5W MINI-BAG PLUS 50 ML IV SCH (20:58)
[2023-06-22] MEDS: ACETAMINOPHEN TAB 650MG DOSE (2X325MG) PO PRN (21:00)
[2023-06-22] MEDS: VANCOMYCIN HCL 750 MG, VIAL MATE ADAPTER 1 EACH in D5W 250 ML IV SCH (22:16)
[2023-06-23 06:20] VITALS: BP 134/76; TEMP 97.3; O2SAT 94
[2023-06-23] MEDS: ENOXAPARIN 40MG/0.4ML SYRINGE (J1650 PER 10MG) SC SCH (08:09)
[2023-06-23 08:45] LABS: BASO % 0.5 % (0.0-1.0); EOS # 0.3 10^3/uL (0.0-0.5); EOS % 4.7 % (0.0-3.0); HEMATOCRIT 41.6 % (42.0-52.0); HEMOGLOBIN 14.5 g/dl (13.5-17.5); LYMPH # 1.4 10^3/uL (1.5-5.0); MEAN CORPUSCULAR HEMOGLOBIN 33.5 pg (27.0-33.0); MEAN CORPUSCULAR HGB CONC 34.9 g/dl (32.0-36.5); MEAN CORPUSCULAR VOLUME 96.1 fl (80.0-96.0); MONO # 0.7 10^3/uL (0.0-0.8); MONO % 11.3 % (2.0-8.0); NEUTROPHILS # 3.8 10^3/uL (1.5-8.5); NEUTROPHILS % 61.2 % (36.0-66.0); PLATELET COUNT, AUTOMATED 311 10^3/uL (150-450); RED BLOOD COUNT 4.33 10^6/uL (4.30-6.10); WHITE BLOOD COUNT 6.2 10^3/uL (4.0-10.0)
[2023-06-23 09:16] LABS: BLOOD UREA NITROGEN 17 MG/DL (9-23); CALCIUM LEVEL 8.9 MG/DL (8.3-10.6); CARBON DIOXIDE LEVEL 29 MMOL/L (20-31); CHLORIDE LEVEL 106 MMOL/L (98-107); CREATININE FOR GFR 0.78 MG/DL (0.70-1.30); GLOMERULAR FILTRATION RATE > 60.0 (>35); GLUCOSE, FASTING 153 MG/DL (74-106); MAGNESIUM LEVEL 1.8 MG/DL (1.8-2.4); POTASSIUM SERUM 4.3 MMOL/L (3.5-5.1); SODIUM LEVEL 141 MMOL/L (136-145)
[2023-06-23 14:22] VITALS: BP 110/60; TEMP 97; O2SAT 95
[2023-06-23 20:00] VITALS: BP 122/67; TEMP 97.3; O2SAT 95
[2023-06-23] MEDS: ATORVASTATIN 20 MG TAB PO SCH (20:44)
[2023-06-24 06:00] VITALS: BP 124/67; TEMP 98.1; O2SAT 93
[2023-06-24 07:06] LABS: BLOOD UREA NITROGEN 19 MG/DL (9-23); CALCIUM LEVEL 8.7 MG/DL (8.3-10.6); CARBON DIOXIDE LEVEL 26 MMOL/L (20-31); CHLORIDE LEVEL 108 MMOL/L (98-107); CREATININE FOR GFR 0.83 MG/DL (0.70-1.30); GLOMERULAR FILTRATION RATE > 60.0 (>35); GLUCOSE, FASTING 145 MG/DL (74-106); MAGNESIUM LEVEL 1.8 MG/DL (1.8-2.4); POTASSIUM SERUM 4.2 MMOL/L (3.5-5.1); SODIUM LEVEL 140 MMOL/L (136-145)
[2023-06-24] MEDS ORDERED: ENTER DRUG NAME HERE (PATIENT'S OWN MED) INH SCH (09:00)
[2023-06-24 14:00] VITALS: BP 125/69; TEMP 97.3; O2SAT 96
[2023-06-24 20:38] VITALS: BP 114/62; TEMP 97.3; O2SAT 94
[2023-06-25 06:01] VITALS: BP 139/70; TEMP 97.7; O2SAT 95
[2023-06-25 06:38] LABS: BASO % 0.7 % (0.0-1.0); EOS # 0.3 10^3/uL (0.0-0.5); EOS % 4.6 % (0.0-3.0); HEMATOCRIT 39.7 % (42.0-52.0); LYMPH # 1.4 10^3/uL (1.5-5.0); LYMPH % 23.5 % (24.0-44.0); MEAN CORPUSCULAR HEMOGLOBIN 33.5 pg (27.0-33.0); MEAN CORPUSCULAR HGB CONC 35.3 g/dl (32.0-36.5); MONO # 0.7 10^3/uL (0.0-0.8); MONO % 11.3 % (2.0-8.0); NEUTROPHILS # 3.7 10^3/uL (1.5-8.5); NEUTROPHILS % 59.6 % (36.0-66.0); PLATELET COUNT, AUTOMATED 334 10^3/uL (150-450); RED BLOOD COUNT 4.18 10^6/uL (4.30-6.10); WHITE BLOOD COUNT 6.1 10^3/uL (4.0-10.0)
[2023-06-25] MEDS ORDERED: DOXY-440 PO (06:41)
[2023-06-25] MEDS ORDERED: CVS1CAP2 PO (06:41)
[2023-06-25 06:58] LABS: BLOOD UREA NITROGEN 19 MG/DL (9-23); CALCIUM LEVEL 8.8 MG/DL (8.3-10.6); CARBON DIOXIDE LEVEL 29 MMOL/L (20-31); CHLORIDE LEVEL 107 MMOL/L (98-107); CREATININE FOR GFR 0.88 MG/DL (0.70-1.30); GLOMERULAR FILTRATION RATE > 60.0 (>35); GLUCOSE, FASTING 146 MG/DL (74-106); MAGNESIUM LEVEL 1.9 MG/DL (1.8-2.4); POTASSIUM SERUM 4.5 MMOL/L (3.5-5.1); SODIUM LEVEL 142 MMOL/L (136-145)
[2023-06-25] MEDS ORDERED: AMOX875T2 PO (09:09)
== END 2023-06-25 11:10 | disposition home health service (06) | DRG 629 ==
LOC: M ED 06:07 → M ED INP 10:15 → M MSPAV 14:21
PROVIDERS: ADMIT Student in an Organized Health Care Education/Training Program; ATTEND Student in an Organized Health Care Education/Training Program
PROC: 0QBQ0ZZ Excision of Right Toe Phalanx, Open Approach (ICD-10-PCS; principal; 2023-06-22)
PROC: 0L9 Tendons, Drainage (ICD-10-PCS; 2023-06-22)
DX: E11.69 Type 2 diabetes mellitus with other specified complication (principal); M86.9 Osteomyelitis, unspecified; E87.20 Acidosis, unspecified; E11.621 Type 2 diabetes mellitus with foot ulcer; D64.9 Anemia, unspecified; Z66 Do not resuscitate; R33.9 Retention of urine, unspecified; Z98.49 Cataract extraction status, unspecified eye; Z79.84 Long term (current) use of oral hypoglycemic drugs; Z79.899 Other long term (current) drug therapy

== ENCOUNTER 2023-07-04 08:55 | Emergency (ER) | payer MEDICARE, OTHER, BC ==
[~2023-07-04] VITALS: Ht 177.8 cm; Wt 70.3 kg
[~2023-07-04 08:55] MED LIST changes: +AMOX875T2 PO; +ATOR1TAB21 PO; +CVS1CAP2 PO; +FLUT1BLS8 IH; +JANU100T PO; +JARD1TAB3 PO; +MULTTAB61 PO; +[UNRECOGNIZED DRUG - CODE] PO
[2023-07-04 11:26] LABS: BASO % 0.4 % (0.0-1.0); EOS # 0.1 10^3/uL (0.0-0.5); EOS % 1.4 % (0.0-3.0); HEMATOCRIT 40.9 % (42.0-52.0); HEMOGLOBIN 14.1 g/dl (13.5-17.5); LYMPH # 1.3 10^3/uL (1.5-5.0); LYMPH % 17.9 % (24.0-44.0); MEAN CORPUSCULAR HEMOGLOBIN 33.1 pg (27.0-33.0); MEAN CORPUSCULAR HGB CONC 34.5 g/dl (32.0-36.5); MONO # 0.7 10^3/uL (0.0-0.8); NEUTROPHILS # 5.2 10^3/uL (1.5-8.5); NEUTROPHILS % 70.9 % (36.0-66.0); PLATELET COUNT, AUTOMATED 355 10^3/uL (150-450); RED BLOOD COUNT 4.26 10^6/uL (4.30-6.10); WHITE BLOOD COUNT 7.3 10^3/uL (4.0-10.0)
[2023-07-04 11:35] LABS: ERYTHROCYTE SEDIMENTATION RATE 19 mm/hr (0-20)
[2023-07-04 11:56] LABS: C REACTIVE PROTEIN QUANTITATIV < 0.40 MG/DL (<1.0)
[2023-07-04 11:57] LABS: BLOOD UREA NITROGEN 22 MG/DL (9-23); CALCIUM LEVEL 9.4 MG/DL (8.3-10.6); CARBON DIOXIDE LEVEL 27 MMOL/L (20-31); CHLORIDE LEVEL 106 MMOL/L (98-107); GLOMERULAR FILTRATION RATE > 60.0 (>35); GLUCOSE, FASTING 105 MG/DL (74-106); POTASSIUM SERUM 4.6 MMOL/L (3.5-5.1); SODIUM LEVEL 142 MMOL/L (136-145)
[2023-07-04] MEDS: VANCOMYCIN HCL 1,000 MG, VIAL MATE ADAPTER 1 EACH in NS 250 ML IV ONE (12:34)
[2023-07-04 14:37] VITALS: BP 162/75; TEMP 97.9; O2SAT 97
== END 2023-07-04 14:41 | disposition home or self-care (01) ==
LOC: M ED 08:55
DX: M86.171 Other acute osteomyelitis, right ankle and foot (principal); E11.9 Type 2 diabetes mellitus without complications; I25.2 Old myocardial infarction; Z79.02 Long term (current) use of antithrombotics/antiplatelets; Z79.2 Long term (current) use of antibiotics; Z79.4 Long term (current) use of insulin; Z79.899 Other long term (current) drug therapy
CPT/HCPCS: 71045; 73630; 80048; 85025; 85652; 86140; 87040; 96365; 96366; 99284; J3370

== ENCOUNTER → 2023-07-19 | Outpatient (CLI) | payer MEDICARE, OTHER, BC ==
[2023-07-19 19:02] LABS: BASO % 0.4 % (0.0-1.0); EOS # 0.1 10^3/uL (0.0-0.5); EOS % 1.9 % (0.0-3.0); HEMATOCRIT 44.5 % (42.0-52.0); HEMOGLOBIN 14.4 g/dl (13.5-17.5); LYMPH # 1.3 10^3/uL (1.5-5.0); LYMPH % 18.1 % (24.0-44.0); MEAN CORPUSCULAR HGB CONC 32.4 g/dl (32.0-36.5); MEAN CORPUSCULAR VOLUME 102.1 fl (80.0-96.0); MONO # 0.8 10^3/uL (0.0-0.8); MONO % 10.4 % (2.0-8.0); NEUTROPHILS % 68.9 % (36.0-66.0); PLATELET COUNT, AUTOMATED 386 10^3/uL (150-450); RED BLOOD COUNT 4.36 10^6/uL (4.30-6.10); WHITE BLOOD COUNT 7.3 10^3/uL (4.0-10.0)
[2023-07-19 19:35] LABS: ALBUMIN 3.7 G/DL (3.2-5.2); ALKALINE PHOSPHATASE 97 U/L (46-116); ALT/SGPT 29 U/L (7.0-40); AST/SGOT 22 U/L (<34); BILIRUBIN,TOTAL 0.6 MG/DL (0.3-1.2); BLOOD UREA NITROGEN 27 MG/DL (9-23); CALCIUM LEVEL 9.7 MG/DL (8.3-10.6); CARBON DIOXIDE LEVEL 28 MMOL/L (20-31); CHLORIDE LEVEL 103 MMOL/L (98-107); CREATININE FOR GFR 0.87 MG/DL (0.70-1.30); GLOMERULAR FILTRATION RATE > 60.0 (>35); GLUCOSE, FASTING 179 MG/DL (74-106); POTASSIUM SERUM 4.7 MMOL/L (3.5-5.1); SODIUM LEVEL 142 MMOL/L (136-145); TOTAL PROTEIN 6.9 G/DL (5.7-8.2)
[2023-07-19 19:36] LABS: URIC ACID 4.9 MG/DL (3.7-9.2)
== END ==
LOC: M WUC 11:01
PROVIDERS: ATTEND Internal Medicine
DX: M79.671 Pain in right foot (principal)

== ENCOUNTER → 2024-03-01 | Outpatient (REF) | payer MEDICARE, OTHER, BC ==
[~2024-03-01] MED LIST changes: -DOXY-323 PO; +DOXY-441 PO
== END ==
LOC: M SFHCDERM 17:01
PROVIDERS: ATTEND Nurse Practitioner Family
DX: T14.8XXA Other injury of unspecified body region, initial encounter (principal); D49.2 Neoplasm of unspecified behavior of bone, soft tissue, and skin

== ENCOUNTER → 2024-03-15 | Outpatient (REF) | payer MEDICARE, OTHER, BC | LOC: M SFHCDERM 17:42 | PROVIDERS: ATTEND Physician Assistant | DX: C44.519 Basal cell carcinoma of skin of other part of trunk (principal) ==

== ENCOUNTER → 2024-10-26 | Outpatient (CLI) | payer MEDICARE, OTHER, BC ==
[~2024-10-26] MED LIST changes: +ASPI-731 PO; -ASPI81CH32 PO; -FLOM0.4C39 PO; +TAMS-18 PO
== END ==
LOC: M RAD 11:10
PROVIDERS: ATTEND Physical Medicine & Rehabilitation
DX: M25.551 Pain in right hip (principal); M16.11 Unilateral primary osteoarthritis, right hip

== ENCOUNTER → 2025-01-16 | Outpatient (CLI) | payer MEDICARE, OTHER, BC | LOC: M PLAIMG 09:09 | PROVIDERS: ATTEND Physical Medicine & Rehabilitation | DX: M51.372 Other intervertebral disc degeneration, lumbosacral region with discogenic back pain and lower extremity pain (principal); M70.61 Trochanteric bursitis, right hip; R60.0 Localized edema; M16.11 Unilateral primary osteoarthritis, right hip; M47.816 Spondylosis without myelopathy or radiculopathy, lumbar region; M47.817 Spondylosis without myelopathy or radiculopathy, lumbosacral region; M48.07 Spinal stenosis, lumbosacral region ==